=== PATIENT | female | born 1990 ===

== ENCOUNTER 2018-12-31 23:50 | Emergency (ER) | payer SELFPAY ==
[2019-01-01 01:30] VITALS: BP 125/86; PULSE 85; RESP 16; TEMP 97.6; O2SAT 98
--- NOTE | 2019-01-01 02:00 | C.PDOC ---
History Of Present Illness 28-year-old female presents to the ED for evaluation of a possible allergic reaction. Patient reports experiencing a 20-minute episode of palpitations, described as a rapid heartbeat. Patient states that she took Augmentin, Promethazine, and Tylenol (all at the same time) around 20 minutes prior to the onset of her symptoms. She had been taking Augmentin and Promethazine since earlier this week, but states that she took all three medications together for the first time today. Patient reports her palpitations have since improved and denies chest pain, shortness of breath, diaphoresis. pt vomited one time, denies abdominal pain. Time Seen by Provider: 01/01/19 00:18 Chief Complaint (Nursing): Allergic Reaction History Per: Patient History/Exam Limitations: no limitations Onset/Duration Of Symptoms: Mins (20) Current Symptoms Are (Timing): Better Possible Cause: Medication Additional History Per: Patient Past Medical History Reviewed: Historical Data, Nursing Documentation, Vital Signs Vital Signs: Last Vital Signs Temp 97.6 F 01/01/19 01:30 Pulse 85 01/01/19 01:30 Resp 16 01/01/19 01:30 BP 125/86 01/01/19 01:30 Pulse Ox 98 01/01/19 01:30 - Medical History PMH: No Chronic Diseases Surgical History: No Surg Hx Family History: States: Unknown Family Hx - Social History Hx Alcohol Use: No Hx Substance Use: No - Immunization History Hx Tetanus Toxoid Vaccination: No Hx Influenza Vaccination: No Hx Pneumococcal Vaccination: No Review Of Systems Constitutional: Negative for: Fever, Sweats ENT: Positive for: Throat Pain Cardiovascular: Positive for: Palpitations. Negative for: Chest Pain, Light Headedness Respiratory: Negative for: Shortness of Breath Gastrointestinal: Positive for: Vomiting Neurological: Negative for: Weakness, Numbness Physical Exam - Physical Exam Appears: Non-toxic, No Acute Distress Skin: Normal Color, Warm, Dry, No Rash Head: Atraumatic, Normacephalic Eye(s): bilateral: Normal Inspection Oral Mucosa: Moist Throat: Erythema (tonsillar ), No Exudate, No Drooling, No Other (tonsillar swelling ) Neck: Normal ROM, Supple Lymphatic: Other (tenderness to nodes ) Chest: Symmetrical, No Deformity, No Tenderness Cardiovascular: Rhythm Regular, No Murmur Respiratory: Normal Breath Sounds, No Rales, No Rhonchi, No Wheezing Extremity: Normal ROM, Capillary Refill (less than 2 seconds ) Neurological/Psych: Oriented x3, Normal Speech, Normal Cognition ED Course And Treatment ECG: Interpreted By Me, Viewed By Me ECG Interpretation: Normal Interpretation Of ECG: nsr with sinus arrhythmia Rate From EC O2 Sat by Pulse Oximetry: 98 Pulse Ox Interpretation: Normal Medical Decision Making Medical Decision Making: Impression: palpitations Plan: * EKG * reassess and disposition Progress: ptwell appearing with 15-20 min episode of fast heartbeat after taking augmentin., tylenol and promethazine together without any cp, sob, diaphresis. pt vomited once. here in ed., no palpitations. tolerated po fluids and nsr at 84 on ekg. d/c home. Patient states she no longer has cough, advised to discontinue use of Promethazine. Disposition Counseled Patient/Family Regarding: Diagnosis, Need For Followup - Disposition Referrals: Bhavesh Ramos DO [Staff Provider] - Disposition: HOME/ ROUTINE Disposition Time: 01:58 Condition: GOOD Additional Instructions: Please stop taking Promethazine. Finish antibiotics. Gargle with warm salty water several timesa day. Take Tylenol for pain, but not at same times as antibiotic. Follow up with Dr Ramos in 2-3days. Return to ER for any worsening symptoms, chest pain or any other concerns. Avoid caffeinated beverages. Drink 6-8cups of water per days. 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 - Scribe Statement The provider has reviewed the documentation as recorded by the Scribe (Caitlin Flores) All medical record entries made by the Scribe were at my direction and personally dictated by me. I have reviewed the chart and agree that the record accurately reflects my personal performance of the history, physical exam, medical decision making, and the department course for this patient. I have also personally directed, reviewed, and agree with the discharge instructions and disposition.
--- NOTE | 2019-01-02 12:32 | CARD ---
APPROVED REPORT Date of service: 01/01/2019 EKG Measurement Heart [id number] <Conclusion> Normal sinus rhythm with sinus arrhythmia Normal ECG
== END 2019-01-01 02:05 | disposition home or self-care (01) ==
LOC: C.ER 23:50
DX: R00.2 Palpitations (principal)

== ENCOUNTER 2019-03-01 14:24 | Emergency (ER) | payer OTHER ==
[2019-03-01 14:48] VITALS: RESP 20; TEMP 98.7; O2SAT 100
--- NOTE | 2019-03-01 15:59 | C.PDOC ---
Time Seen by Provider: 03/01/19 14:58 Chief Complaint (Nursing): ENT Problem Past Medical History Vital Signs: Last Vital Signs Temp 98.7 F 03/01/19 14:40 Pulse 90 03/01/19 14:40 Resp 20 03/01/19 14:40 BP 143/83 03/01/19 14:40 Pulse Ox 100 03/01/19 14:40 Family History: States: Unknown Family Hx - Social History Hx Alcohol Use: No Hx Substance Use: No - Immunization History Hx Tetanus Toxoid Vaccination: Yes Hx Influenza Vaccination: No Hx Pneumococcal Vaccination: No ED Course And Treatment O2 Sat by Pulse Oximetry: 100 Disposition - Disposition
--- NOTE | 2019-03-01 16:00 | C.PDOC ---
History Of Present Illness 28 year old female patient presents to the ER complain of sore throat for x5 days. Patient was seen by PMD and discharged with augmentin. Patient states she took augmented for x4 days with no relief. Patient was referred to ENT who preformed a "burning procedure" which did not provide any relief. Patient comes here because her symptoms are persistent and unchanged. Patient denies fever, shortness of breath, dysphasia and chest pain. <Susannah Ambriz - Last Filed: 03/02/19 18:40> History Per: Patient History/Exam Limitations: no limitations Onset/Duration Of Symptoms: Days (x5) Current Symptoms Are (Timing): Still Present Recent travel outside of the [place]: No <Susannah Ambriz - Last Filed: 03/02/19 18:40> <Rickie Braga - Last Filed: 03/02/19 21:38> Time Seen by Provider: 03/01/19 14:58 Chief Complaint (Nursing): ENT Problem Past Medical History Reviewed: Historical Data, Nursing Documentation, Vital Signs Vital Signs: Last Vital Signs Temp 98.7 F 03/01/19 14:40 Pulse 90 03/01/19 14:40 Resp 20 03/01/19 14:40 BP 143/83 03/01/19 14:40 Pulse Ox 100 03/01/19 14:40 Family History: States: Unknown Family Hx - Social History Hx Alcohol Use: No Hx Substance Use: No - Immunization History Hx Tetanus Toxoid Vaccination: Yes Hx Influenza Vaccination: No Hx Pneumococcal Vaccination: No <Susannah Ambriz - Last Filed: 03/02/19 18:40> Vital Signs: Last Vital Signs Temp 98.7 F 03/01/19 14:40 Pulse 92 H 03/01/19 16:55 Resp 20 03/01/19 16:55 BP 137/81 03/01/19 16:55 Pulse Ox 100 03/02/19 18:42 <Rickie Braga - Last Filed: 03/02/19 21:38> Review Of Systems Except As Marked, All Systems Reviewed And Found Negative. Constitutional: Negative for: Fever ENT: Positive for: Throat Pain Cardiovascular: Negative for: Chest Pain Respiratory: Negative for: Shortness of Breath Neurological: Negative for: Other (dysphasia ) <Susannah Ambriz Scott Last Filed: 03/02/19 18:40> Physical Exam - Physical Exam Appears: Well ( ), Non-toxic, No Acute Distress Skin: Warm, Dry Head: Normacephalic Eye(s): bilateral: Normal Inspection, PERRL, EOMI Ear(s): Bilateral: Normal Nose: Normal Oral Mucosa: Moist Throat: Erythema (mild tonsil erythema ), Exudate (large in back of throat ), No Drooling Neck: Normal ROM, Trachea Midline, No Midline Cervical Tenderness, No Paracervical Tenderness, Supple Chest: Symmetrical, No Deformity Cardiovascular: Rhythm Regular, No Friction Rub, No Murmur Respiratory: Normal Breath Sounds, No Rales, No Rhonchi, No Wheezing Gastrointestinal/Abdominal: Soft, No Tenderness Back: Normal Inspection, No CVA Tenderness, No Vertebral Tenderness, No Paraspinal Tenderness Extremity: Normal ROM (x4), No Swelling Neurological/Psych: Oriented x3, Normal Speech, Normal Cognition, Normal Motor Gait: Steady <Susannah Ambriz Scott Last Filed: 03/02/19 18:40> ED Course And Treatment O2 Sat by Pulse Oximetry: 100 (RA) Pulse Ox Interpretation: Normal <Susannah Ambriz Scott Last Filed: 03/02/19 18:40> Medical Decision Making Medical Decision Making: Plans: -- throat cx -- monospot -- rapid strep throat Baxter and strep are negative. The patient was instructed to continue the antibiotics until completed. On re-exam, the patient is active and playful in the ED, / improvement of symptoms. Lungs are CTA, heart is RRR, abdomen is soft, non-tender and the patient is tolerating PO well. Ambulatory in the ED with steady gait. Follow up with you medical doctor within 1-2 days without fail. Return if worsened. <Susannah Amrbiz Scott Last Filed: 03/02/19 18:40> Disposition - Disposition Disposition Time: 16:49 <Susannah Ambriz Last Filed: 03/02/19 18:40> <Rickie Braga - Last Filed: 03/02/19 21:38> - Disposition Referrals: Brayden Crowe MD [Staff Provider] - Disposition: HOME/ ROUTINE Condition: STABLE Additional Instructions: Follow up with the medical doctor within 1-2 days. Return if worsened. 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 - Scribe Statement The provider has reviewed the documentation as recorded by the Fani Cortes Do All medical record entries made by the Scribe were at my direction and personally dictated by me. I have reviewed the chart and agree that the record accurately reflects my personal performance of the history, physical exam, medical decision making, and the department course for this patient. I have also personally directed, reviewed, and agree with the discharge instructions and disposition. <Susannah Ambriz - Last Filed: 03/02/19 18:40>
[2019-03-01 16:57] VITALS: BP 137/81; PULSE 92
== END 2019-03-01 16:56 | disposition home or self-care (01) ==
LOC: C.ER 14:24
DX: J02.9 Acute pharyngitis, unspecified (principal)